=== PATIENT | male | born 1980 | race Caucasian/White ===

== ENCOUNTER 2020-06-07 08:04 | Outpatient (CLI) | payer OTHER ==
[2020-06-07] MEDS ORDERED: BARIUM SULFATE 135 ML SUSP.RECON (E-Z-HD) PO ONE (09:04)
== END 2020-06-07 21:07 | disposition home or self-care (01) ==
LOC: SRD 08:04
PROVIDERS: ATTEND Otolaryngology
DX: R13.10 Dysphagia, unspecified (principal)
CPT/HCPCS: 74220-TC